=== PATIENT | female | born 1985 ===

== ENCOUNTER → 2019-01-16 | Outpatient (CLI) | payer OTHER ==
[~2019-01-16] MED LIST: CLOBETTC TP; CRUTCH USE; HYDACE5 PO; IBUP800 PO; RXHYDACE PO
[2019-01-19 01:11] LABS: CHLAMYDIA TRACHOMATIS, NAA Negative (Negative); HPV 16 Negative (Negative); HPV 18 Negative (Negative); HPV OTHER HR TYPES Negative (Negative); NEISSERIA GONORRHOEAE, NAA Negative (Negative)
== END | disposition home or self-care (01) ==
LOC: LAB SHORT 15:15 → LAB 15:15
PROVIDERS: Obstetrics & Gynecology
DX: Z36.89 Encounter for other specified antenatal screening (principal)
CPT/HCPCS: 87491; 87591; 87624; G0123

== ENCOUNTER → 2019-06-28 | Outpatient (CLI) | payer OTHER ==
[~2019-06-28] MED LIST changes: +LABE200 PO; +Percocet 5-3251 EACH PO
== END | disposition home or self-care (01) ==
LOC: LAB SHORT 10:08 → LAB 10:08
DX: Z34.80 Encounter for supervision of other normal pregnancy, unspecified trimester (principal)
CPT/HCPCS: 87081; 87653

== ENCOUNTER 2019-07-20 11:33 | Inpatient (IN) | payer OTHER ==
[~2019-07-20] VITALS: Ht 172.7 cm; Wt 138.6 kg
[~2019-07-20 11:33] MED LIST changes: -LABE200 PO; -Percocet 5-3251 EACH PO
[2019-07-22 10:25] LABS: BASOPHILS ABSOLUTE AUTO 0.03 K/mm3 (0.00-0.23); BASOPHILS PERCENT AUTO 0 % (0-2); EOSINOPHILS ABSOLUTE AUTO 0.11 K/mm3 (0.00-0.68); EOSINOPHILS PERCENT AUTO 2 % (0-6); Hematocrit 35.9 % (33.0-51.0); Hemoglobin 11.4 g/dL (11.5-16.0); IMMATURE GRAN ABSOLUTE AUTO 0.02 K/mm3 (0.00-0.10); IMMATURE GRAN PERCENT AUTO 0 % (0-1); LYMPHOCYTES ABSOLUTE AUTO 1.91 K/mm3 (0.84-5.20); LYMPHOCYTES PERCENT AUTO 27 % (21-46); MONOCYTES ABSOLUTE AUTO 0.32 K/mm3 (0.16-1.47); MONOCYTES PERCENT AUTO 5 % (4-13); Mean Corpuscular HGB 25.8 pg (26.0-34.0); Mean Corpuscular HGB Conc 31.8 g/dL (31.5-36.5); Mean Corpuscular Volume 81 fL (80-100); Mean Platelet Volume 9.7 fL (9.1-12.4); NEUTROPHILS PERCENT AUTO 66 % (41-73); Platelet Count 294 K/mm3 (150-400); RDW Coefficient Variation 15.4 % (11.7-14.2); RDW Standard Deviation 45.1 fL (35.1-46.3); Red Blood Cell Count 4.42 M/mm3 (3.80-5.20); White Blood Cell Count 7.09 K/mm3 (4.00-11.30)
[2019-07-22] MEDS ORDERED: LABE200 PO (10:32)
--- NOTE | 2019-07-23 08:15 | NUR ---
07/23/19 0815 Blossom Amador SECTION COMPLETE. DELIVERY OF VIABLE FEMALE INFANT BORN AT 0746. WEIGHT 4160 GRAMS. DELIVERY OF PLACENTA MANUALLY COMPLETE. BILATERAL SALPINGECTOMY COMPLETED. SPECIMENT A. RIGHT AND LEFT FALLOPIAN TUBE SEGMENTS REMOVED AND TAKEN TO PATHOLOGY. BABY'S CORD BLOOD SAMPLE SENT WITH BABY RN.
--- NOTE | 2019-07-23 12:59 | NUR ---
PT RESTING. PT'S URINE NOTED TO BE DARK IBAN. PT ENCOURAGED TO INCREASE POS. PT HAS ALREADY DRANK 500CC WATER. PT WOULD LIKE TO TRY AND NAP
--- NOTE | 2019-07-23 14:17 | NUR ---
IV TO SL. PT THOMAS POS WELL. URINE OUT PUT STILL IBAN COLORED. PT DRANK ANOTHER 800CC WATER. PITCHER REFILLED AND PT ENCOURAGED TO DRINK TOLERATES. PT DENIES NAUSEA WITH POS. LEV CARE DONE. DENIES PAIN AT THIS TIME.
--- NOTE | 2019-07-23 15:45 | NUR ---
PT URINE OUTPUT NOTED TO BE VERY PALE YELLOW. PT THOMAS POS WELL.
[2019-07-23 16:38] LABS: BASOPHILS ABSOLUTE AUTO 0.02 K/mm3 (0.00-0.23); BASOPHILS PERCENT AUTO 0 % (0-2); EOSINOPHILS ABSOLUTE AUTO 0.02 K/mm3 (0.00-0.68); EOSINOPHILS PERCENT AUTO 0 % (0-6); Hematocrit 31.7 % (33.0-51.0); Hemoglobin 9.9 g/dL (11.5-16.0); IMMATURE GRAN ABSOLUTE AUTO 0.05 K/mm3 (0.00-0.10); IMMATURE GRAN PERCENT AUTO 1 % (0-1); LYMPHOCYTES ABSOLUTE AUTO 1.54 K/mm3 (0.84-5.20); LYMPHOCYTES PERCENT AUTO 16 % (21-46); MONOCYTES ABSOLUTE AUTO 0.41 K/mm3 (0.16-1.47); MONOCYTES PERCENT AUTO 4 % (4-13); Mean Corpuscular HGB 25.7 pg (26.0-34.0); Mean Corpuscular HGB Conc 31.2 g/dL (31.5-36.5); Mean Corpuscular Volume 82 fL (80-100); Mean Platelet Volume 9.9 fL (9.1-12.4); NEUTROPHILS ABSOLUTE AUTO 7.39 K/mm3 (1.96-9.15); NEUTROPHILS PERCENT AUTO 79 % (41-73); Platelet Count 247 K/mm3 (150-400); RDW Coefficient Variation 15.3 % (11.7-14.2); RDW Standard Deviation 45.9 fL (35.1-46.3); Red Blood Cell Count 3.85 M/mm3 (3.80-5.20); White Blood Cell Count 9.43 K/mm3 (4.00-11.30)
--- NOTE | 2019-07-23 17:07 | NUR ---
CONSULT. MOM IS EXPERIENCED, STATES BABY IS LATCHING WELL, AND SHE HAS NO QUESTIONS. FAMILY IS IN VISITING AND BABY IS ASLEEP IN FAMILY ARMS.
--- NOTE | 2019-07-23 17:43 | NUR ---
PT OOB AND TRANSFERRED TO CHAIR. THOMAS WELL. LEV CARE DONE.
[2019-07-24 05:44] LABS: Hematocrit 30.5 % (33.0-51.0); Hemoglobin 9.4 g/dL (11.5-16.0); Mean Corpuscular HGB 25.5 pg (26.0-34.0); Mean Corpuscular HGB Conc 30.8 g/dL (31.5-36.5); Mean Corpuscular Volume 83 fL (80-100); Mean Platelet Volume 9.9 fL (9.1-12.4); Platelet Count 240 K/mm3 (150-400); RDW Coefficient Variation 15.6 % (11.7-14.2); RDW Standard Deviation 46.8 fL (35.1-46.3); Red Blood Cell Count 3.68 M/mm3 (3.80-5.20); White Blood Cell Count 7.78 K/mm3 (4.00-11.30)
--- NOTE | 2019-07-24 08:00 | NUR ---
pt requesting to go home this evening
[2019-07-24] MEDS ORDERED: IBUP800 PO (09:34)
[2019-07-24] MEDS ORDERED: Percocet 5-3251 EACH PO (09:35)
--- NOTE | 2019-07-24 12:12 | NUR ---
RT CONSULT DONE, PT IS ABLE TO COUGH, BUT NOT ABLE TO GET ANYTHING UP, CAN HEAR IT IN HER THROAT, PT FAMILY HAS BEEN SICK WITH RESP COLD, PT JUST GOT OVER THE RESP COLD THE DAY BEFORE HER C/S, HER LEFT HOSP YEST 9-16 FOR RESP COUGH. PT LS ARE CLEAR BILATERALLY, BUT SLIGHTLY DIMINISHED
--- NOTE | 2019-07-24 16:25 | NUR ---
DISCHARGE INSTRUCTIONS REVIEWED AND SIGNED. ALL QUESTIONS ANSWERED. BANDS MATCHED.
== END 2019-07-24 16:25 | disposition home or self-care (01) | DRG 785 ==
LOC: BC 07-23 06:15
PROVIDERS: ADMIT Obstetrics & Gynecology
PROC: 10D00Z1 Extraction of Products of Conception, Low, Open Approach (ICD-10-PCS; principal; 2019-07-23 07:30)
PROC: 0UT70ZZ Resection of Bilateral Fallopian Tubes, Open Approach (ICD-10-PCS; 2019-07-23 07:30)
DX: O32.1XX0 Maternal care for breech presentation, not applicable or unspecified (principal); Z30.2 Encounter for sterilization; Z3A.39 39 weeks gestation of pregnancy; Z37.0 Single live birth; O69.81X0 Labor and delivery complicated by cord around neck, without compression, not applicable or unspecified; O16.4 Unspecified maternal hypertension, complicating childbirth; O99.214 Obesity complicating childbirth; E66.01 Morbid (severe) obesity due to excess calories
CPT/HCPCS: 36415; 85025; 85027; 86850; 86900; 86901; 88302; 94667; J0690; J0694; J1885; J2590; J2765; J3010; J7120